=== PATIENT | male | born 1990 | race African-American/Black ===

== ENCOUNTER 2017-01-04 11:36 | Emergency (ER) | payer OTHER ==
[~2017-01-04] VITALS: Ht 177.8 cm; Wt 68.0 kg
[~2017-01-04 11:36] MED LIST: IBUP800T23 PO; PENI500T PO; PERI0.126 SWISH-SPIT
[2017-01-04 11:37] VITALS: BP 149/68; PULSE 84; RESP 14; TEMP 98.2; O2SAT 99
--- NOTE | 2017-01-04 11:41 | PD ---
HPI . rash on penis x 1 mt Chief Complaint: Complaint Time Seen by Provider: 11:41 Travel History International Travel<30 days: No Contact w/Intl Traveler<30days: No Traveled to known affect area: No History of Present Illness HPI 26-year-old male with history of genital herpes here with complaints of blisters on his penis that has been present for greater than one month. Patient tells me that he was initially diagnosed with herpes back in 2009 and was given some medication. He says that the medication made his herpes worse and he had a rash. He was taken off the medication and told not to take any medications ever. He tells me he has not had any issues for quite some time, but noticed over month ago that he had some blisters that popped up. He says initially they were painful, but now they are not painful and are just there. He decided to come in for evaluation as he usually comes to the emergency department in [place] when he is in town. He has several blisters on his penis. They are now scabbed over and not causing any pain. He says they have been there for over 1 mt. He denies any high risk sexual behavior as he is now . [facility] Social History Alcohol Use: No Tobacco Use: Yes Substance Use: No Allergies-Medications (Allergen,Severity, Reaction): Coded Allergies: No Known Allergies (Unverified , 01/04/17) Reported Meds & Prescriptions Reported Meds & Active Scripts Active Review of Systems General / Constitutional: No: Fever Eyes: No: Visual changes HENT: No: Headaches Cardiovascular: No: Chest Pain or Discomfort Respiratory: No: Shortness of Breath Gastrointestinal: No: Abdominal Pain Genitourinary: Positive: Other (penile rash), No: Dysuria Musculoskeletal: No: Pain Skin: No Rash Neurologic: No: Weakness Psychiatric: No: Depression Endocrine: No: Polydipsia Hematologic/Lymphatic: No: Easy Bruising Physical Exam Narrative GENERAL: AAO x 3, no acute distress, Well-nourished, well-developed patient. SKIN: Warm and dry. No visible rashes or bruising. HEAD: Normocephalic and atraumatic. EYES: No scleral icterus. No injection or drainage. ENT: No nasal drainage noted. Mucous membranes pink. Airway patent. NECK: Supple, trachea midline. No JVD. CARDIOVASCULAR: Regular rate and rhythm without murmurs, gallops, or rubs. RESPIRATORY: Breath sounds equal bilaterally. No accessory muscle use. No rhonchi or rales. GASTROINTESTINAL: Normal visual inspection GENITAL: Nataly LEONARD present: 4 larger blister like lesions that are scabbed over. Looks like some of the blisters may be coalesced. no new lesions present. no penile discharge EXTREMITIES: No cyanosis or edema. BACK: Nontender without obvious deformity. No CVA tenderness. PSYCH: AAO x 3, normal affect. Data Data Last Documented VS Vital Signs Date Time Temp Pulse Resp B/P Pulse Ox O2 Delivery O2 Flow Rate FiO2 01/04/17 11:37 98.2 84 14 149/68 99 MDM Medical Decision Making Medical Screen Exam Complete: Yes Emergency Medical Condition: Yes Medical Record Reviewed: Yes Differential Diagnosis HSV 2, syphilis, less likely skin cancer Narrative Course In summary this is a 26-year-old male who has had one months worth of blisters on his penis. Initially they were painful, now they are not. 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 Unfortunately patient reports that he has some allergy to an antiviral that he was given in the past, therefore I have advised him that I am unable to provide him any medication as he is not aware of the name of the medication he is allergic to. Additionally there are no new lesions present. These appear old and could potentially be related to syphilis. He does have a primary care provider locally. I recommend that he see her this week and get further testing. He will need to be tested for syphilis. I have discussed this with him. Patient verbalized understanding of instructions. Diagnosis Primary Impression: Lesion of penis Patient Instructions: General Instructions Additional Instructions: Please see her primary care provider this week as we discussed. You can also reach out to [facility] for further testing. Please try to find out the name of the medication that you are not able to take. Med/Other Pt SpecificInfo: No Change to Meds Scripts No Active Prescriptions or Reported Meds Disposition: 01 DISCHARGE HOME Condition: Stable Fanny Galindo January 04, 2017 11:41
== END 2017-01-04 12:01 | disposition home or self-care (01) ==
LOC: NEPK 11:36
DX: L98.8 Other specified disorders of the skin and subcutaneous tissue (principal); Z72.0 Tobacco use
CPT/HCPCS: 99282

== ENCOUNTER 2017-04-23 13:04 | Emergency (ER) | payer OTHER ==
[~2017-04-23] VITALS: Ht 177.8 cm; Wt 70.0 kg
[2017-04-23 13:06] VITALS: BP 126/73; PULSE 104; RESP 20; TEMP 97.5; O2SAT 99
--- NOTE | 2017-04-23 13:10 | PD ---
Physical Exam Time Seen by Provider: 13:08 Narrative 26yo M c/o sores to his testicles x 5 weeks. Has been using a cream w/ worsening of symptoms. Denies penile discharge, dysuria. +testicular swelling. Denies fever, vomiting abd pain. Patient seen in triage. VS reviewed. Awaiting bed placement. Data Data Last Documented VS Vital Signs Date Time Temp Pulse Resp B/P (MAP) Pulse Ox O2 Delivery O2 Flow Rate FiO2 04/23/17 13:06 97.5 104 20 126/73 (90) 99 Room Air MDM Supervised Visit with TIMOTHY: No Scripts No Active Prescriptions or Reported Meds Kristin Calloway Apr 23, 2017 13:10
--- NOTE | 2017-04-23 13:58 | PD ---
HPI Chief Complaint: Complaint Time Seen by Provider: 13:47 Travel History International Travel<30 days: No Contact w/Intl Traveler<30days: No Traveled to known affect area: No History of Present Illness HPI 26-year-old Afro[place] male presents the emergency Department with reports of exposure to gonorrhea from his soon-to-be ex-. Patient also has had increasing sores on his right inguinal area and groin as well as buttocks which she has been treating with betamethasone/clotrimazole ointment and Bactroban. Patient also has history of genital warts for which he's been using imiquimod ointment for for the past couple of weeks. Patient is in significant pain. He denies fever, chills, or abdominal pain. Patient is requesting treatment for gonorrhea since he is here. He is questioning what other treatment he can have the scrotum and lesions. He has no known drug allergies. PFSH Past Medical History Diminished Hearing: No Genitourinary: Yes (herpes) Past Surgical History Other Surgery: Yes (skin graft to right leg) Social History Alcohol Use: Yes (sometimes) Tobacco Use: Yes (2ppd) Substance Use: No Allergies-Medications (Allergen,Severity, Reaction): Coded Allergies: No Known Allergies (Unverified , 01/04/17) Reported Meds & Prescriptions Reported Meds & Active Scripts Active Review of Systems Except as stated in HPI: all other systems reviewed are Neg General / Constitutional: No: Fever Eyes: No: Visual changes HENT: No: Headaches Cardiovascular: No: Chest Pain or Discomfort Respiratory: No: Shortness of Breath Gastrointestinal: No: Abdominal Pain Genitourinary: No: Dysuria Musculoskeletal: No: Pain Skin: Positive Lesions (see history present illness.), No Rash Neurologic: No: Weakness Psychiatric: No: Depression Endocrine: No: Polydipsia Hematologic/Lymphatic: No: Easy Bruising Physical Exam Narrative GENERAL: Patient appears in mild to moderate distress. SKIN: Warm and dry. Normal color. Normal turgor. Patient is a well demarcated raw appearing somewhat leathery area to the right inguinal groin and scrotum consistent with chronic dermatophytosis. This could also be a reaction to the imiquimod cream which he has been perhaps overusing. HEAD: Atraumatic. Normocephalic. EYES: Pupils equal and round. No scleral icterus. No injection or drainage. ENT: No nasal bleeding or discharge. Mucous membranes pink and moist. NECK: Trachea midline. No JVD. CARDIOVASCULAR: Regular rate and rhythm. RESPIRATORY: No accessory muscle use. Clear to auscultation. Breath sounds equal bilaterally. GASTROINTESTINAL: Abdomen soft, non-tender, nondistended. Hepatic and splenic margins not palpable. MUSCULOSKELETAL: Extremities without clubbing, cyanosis, or edema. No obvious deformities. NEUROLOGICAL: Awake and alert. No obvious cranial nerve deficits. Motor grossly within normal limits. Five out of 5 muscle strength in the arms and legs. Normal speech. PSYCHIATRIC: Appropriate mood and affect; insight and judgment normal. Data Data Last Documented VS Vital Signs Date Time Temp Pulse Resp B/P (MAP) Pulse Ox O2 Delivery O2 Flow Rate FiO2 04/23/17 13:06 97.5 104 20 126/73 (90) 99 Room Air Orders Orders Azithromycin (Zithromax) (04/23/17 14:00) Ceftriaxone Inj (Rocephin Inj) (04/23/17 14:00) Sodium Chloride 0.9% Flush (Ns Flush) (04/23/17 14:00) Lidocaine 1% Inj (50 Ml) (Xylocaine 1% I (04/23/17 14:00) MDM Medical Decision Making Medical Screen Exam Complete: Yes Emergency Medical Condition: Yes Differential Diagnosis STD exposure. Chronic dermatophytosis. Possible reaction to imiquimod cream Narrative Course Patient is treated for STD with Rocephin 1000 mg IM as well as 1000 mg azithromycin by mouth. Patient is to continue Bactroban ointment as previously. Patient is to continue the clotrimazole/betamethasone cream as previously. Patient is to start Diflucan 150 mg one weekly 4. Recommend follow-up with local primary care physician or return to emergency department as needed. Diagnosis Primary Impression: STD (male) Additional Impression: Dermatophytosis of groin and perianal area Referrals: [facility] Patient Instructions: General Instructions, Won Lopez (ED) Additional Instructions: Patient is treated for STD with Rocephin 1000 mg IM as well as 1000 mg azithromycin by mouth. Patient is to continue Bactroban ointment as previously. Patient is to continue the clotrimazole/betamethasone cream as previously. Patient is to start Diflucan 150 mg one weekly 4. Recommend follow-up with local primary care physician or return to emergency department as needed. Med/Other Pt SpecificInfo: Prescription(s) given Scripts No Active Prescriptions or Reported Meds Disposition: 01 DISCHARGE HOME Condition: Stable Fito López Apr 23, 2017 13:58
[2017-04-23] MEDS ORDERED: SODIUM CHLORIDE 0.9% FLUSH 10 ML FLUSH IVF PRN (14:00)
[2017-04-23] MEDS ORDERED: AZITHROMYCIN 250 MG TAB PO ONE (14:00)
[2017-04-23] MEDS ORDERED: LIDOCAINE HCL 1% 50 ML VIAL XX ONE (14:00)
[2017-04-23] MEDS ORDERED: DIFL150T PO (14:15)
[2017-04-23] MEDS ORDERED: MUPI2%T TOPICAL (14:16)
[2017-04-23] MEDS ORDERED: TRAM50TA PO (14:33)
== END 2017-04-23 14:59 | disposition home or self-care (01) ==
LOC: NEPK 13:04
DX: A64 Unspecified sexually transmitted disease (principal); B35.6 Tinea cruris; F17.200 Nicotine dependence, unspecified, uncomplicated
CPT/HCPCS: 96372; 99284; J0696

== ENCOUNTER 2017-07-17 17:33 | Emergency (ER) | payer OTHER ==
[~2017-07-17] VITALS: Ht 177.8 cm; Wt 70.0 kg
[~2017-07-17 17:33] MED LIST changes: +DIFL150T PO; -IBUP800T23 PO; +MUPI2%T TOPICAL; -PENI500T PO; -PERI0.126 SWISH-SPIT; +TRAM50TA PO
[2017-07-17 17:35] VITALS: BP 138/84; PULSE 84; RESP 16; TEMP 98.1; O2SAT 100
[2017-07-17] MEDS ORDERED: PENICILLIN V POTASSIUM 500 MG TAB PO ONE (18:15)
[2017-07-17] MEDS ORDERED: LIDOCAINE HCL 1% 50 ML VIAL INFIL ONE (18:15)
--- NOTE | 2017-07-17 18:16 | PD ---
HPI Chief Complaint: Oral / Dental Pain or Problem Time Seen by Provider: 18:10 Travel History International Travel<30 days: No Contact w/Intl Traveler<30days: No Traveled to known affect area: No History of Present Illness HPI 27-year-old male here for evaluation of left upper/posterior molar pain. Patient reports that the pain has been going on for about a week and has progressively worsened. Pain is 9 out of 10, constant. No hot or cold sensitivity. No difficulty swallowing or breathing. No fevers. He tried contacting his dentist and was told that they could not get him in for another 5 -6 weeks. PFSH Past Medical History Diminished Hearing: No Genitourinary: Yes (herpes) Past Surgical History Other Surgery: Yes (skin graft to right leg) Social History Alcohol Use: Yes (sometimes) Tobacco Use: Yes (2ppd) Substance Use: No Allergies-Medications (Allergen,Severity, Reaction): Coded Allergies: No Known Allergies (Unverified , 04/23/17) Reported Meds & Prescriptions Reported Meds & Active Scripts Active Tramadol (Tramadol HCl) 50 Mg Tab 50 Mg PO Q6H PRN Bactroban Topical (Mupirocin) 22 Gm Cream 1 Applic TOPICAL BID Diflucan (Fluconazole) 150 Mg Tab 150 Mg PO WEEKLY Review of Systems Except as stated in HPI: all other systems reviewed are Neg Physical Exam Narrative GENERAL: Well-developed, well-nourished, comfortable, no apparent distress. SKIN: Focused skin assessment warm/dry. HEAD: Atraumatic. Normocephalic. EYES: Pupils equal and round. No scleral icterus. No injection or drainage. ENT: Poor dentition with severe decay to several teeth, tooth 14 is absent, tenderness to left upper molars, no facial swelling, no fluctuance or induration , no drooling or stridor. No subungual swelling. No neck swelling or induration. NECK: Trachea midline. No JVD. CARDIOVASCULAR: Regular rate and rhythm. RESPIRATORY: No accessory muscle use. Clear to auscultation. Breath sounds equal bilaterally. NEUROLOGICAL: Awake and alert. No obvious cranial nerve deficits. Motor grossly within normal limits. Normal speech. PSYCHIATRIC: Appropriate mood and affect; insight and judgment normal. Data Data Last Documented VS Vital Signs Date Time Temp Pulse Resp B/P (MAP) Pulse Ox O2 Delivery O2 Flow Rate FiO2 07/17/17 17:35 98.1 84 16 138/84 (102) 100 Orders Orders Lidocaine 1% Inj (50 Ml) (Xylocaine 1% I (07/17/17 18:15) Penicillin V Potassium (Veetids) (07/17/17 18:15) [facility] Medical Decision Making Medical Screen Exam Complete: Yes Emergency Medical Condition: Yes Differential Diagnosis Dental cavity, dental infection, dental pain, deep space face/neck infection unlikely Narrative Course This is a 27-year-old male who presents with dental pain. The patient has poor dentition with obvious dental decay with tenderness over his left upper molars. There is no drooling or stridor on exam. No trismus. No signs of deep space face or neck infection. Left greater palatine nerve block was performed with immediate relief of pain. Patient will be started on penicillin VK and advised to follow-up with his dentist as soon as possible. He was informed on when to return to the emergency department. He verbalizes understanding and agreement with plan. Procedures Procedure Narrative Left greater palatine nerve block: 1 cc of 1% lidocaine was injected in the area of the left greater palatine nerve. Patient experienced immediate relief of pain. Tolerated well. No complications. Diagnosis Primary Impression: Pain, dental Referrals: Dentist 3 days Additional Instructions: Follow-up with a dentist this week. Return to the emergency department for worsening symptoms or any other Scripts Penicillin V Potassium (Penicillin V Potassium) 500 Mg Tab 500 MG PO Q6H for Infection for 10 Days, #40 TAB 0 Refills Prov: Kenneth Becerra MD 07/17/17 Disposition: 01 DISCHARGE HOME Condition: Stable Kenneth Becerra MD Jul 17, 2017 18:16
[2017-07-17] MEDS ORDERED: PENI500T PO (18:23)
== END 2017-07-17 19:15 | disposition home or self-care (01) ==
LOC: NEPD 17:33
DX: K08.89 Other specified disorders of teeth and supporting structures (principal); F17.200 Nicotine dependence, unspecified, uncomplicated; Z79.899 Other long term (current) drug therapy
CPT/HCPCS: 64450